=== PATIENT | female | born 1990 | race Caucasian/White ===

== ENCOUNTER 2020-03-11 01:35 | Outpatient (CLI) | payer SELFPAY ==
[2020-03-11] MEDS ORDERED: LACTATED RINGERS 1,000 ML ONE (03:40)
[2020-03-11] MEDS ORDERED: LACTATED RINGERS 1,000 ML IV ONE (03:53)
[2020-03-11 04:23] LABS: Bilirubin,Urine NEG (Negative); Blood,Urine NEG (Negative); Color,Urine Yellow (Yellow); Mucus,Urine FEW /HPF; Protein,Urine <15 mg/dL mg/dL (Negative); Urobilinogen,Urine < 2.0 mg/dL (<2.0)
[2020-03-11 04:53] VITALS: BP 110/67
--- NOTE | 2020-03-11 05:01 | Event Note ---
Date: 03/11/20 (walk in previous ) NO care presents with c/o contractions from [place]. She reports a visit in [place] but no care since arrival to [place]. Contractions q 8-10 mins, cat 1 tracing with 15x15 accels. SVE /-3. OB complete US ordered. KATIANA 8.5 cm, OSEI 04/18/2020 34.4 weeks anterior grade 0 placenta. 1 liter LR bolus given. SVE unchanged after [address] Hinds to d/c home with a list of providers, vistaril 50 mg po once, and labor precautions. He agrees with the plan. patient D/c'd to home with instructions to call an office on Thursday. Reiterated importance of care due to need for planned repeat and she verbalized understanding ( All communication done via translation line)
--- NOTE | 2020-03-13 11:37 | Ultrasound Report ---
ULTRASOUND OBSTETRIC Indication: No care pelvic abdominal pain. Findings: There is a single intrauterine . BPD = 8.4 cm = 33 weeks, 5 day(s). Head circumference = 29.7 cm = 32 weeks, 6 day(s). Abdominal circumference = 33.1 cm = 36 weeks, 0 day(s). Femur length = 7 cm = 35 weeks, 6 day(s). Overall estimated sonographic age = 34 weeks, 4 day(s). heart rate is 145 beats per minute. Estimated weight is 2660 grams position is cephalic. Cervix appears closed. movement is present. Placenta is anterior and grade 0 . Amniotic fluid volume appears normal. Maternal adnexa appear normal. Impression: 1. Single living intrauterine with estimated sonographic age of 34 weeks 4 days 2. No sonographic abnormality identified. Signer Name: Trevor Ramirez MD Signed: 03/11/2020 4:11 AM Workstation Name: [id number]
== END 2020-03-11 05:17 | disposition home or self-care (01) ==
LOC: TRG 01:35 → APU 01:38 → TRG 05:17
PROVIDERS: ATTEND Obstetrics & Gynecology
DX: O47.1 False labor at or after 37 completed weeks of gestation (principal); Z3A.39 39 weeks gestation of pregnancy
CPT/HCPCS: 59025; 76816; 81001; J7120; Q0177